=== PATIENT | male | born 1955 | race Caucasian/White ===

== ENCOUNTER 2021-02-15 16:11 | Emergency (ER) | payer OTHER ==
[~2021-02-15] VITALS: Ht 172.7 cm; Wt 77.1 kg
--- NOTE | 2021-02-15 16:15 | NUR ---
PT TAKEN TO BED 7 AND TRIAGED AT BEDSIDE.
[2021-02-15 16:22] VITALS: BP 165/78
--- NOTE | 2021-02-15 16:25 | NUR ---
65 YEAR OLD MALE COMPLAINS OF LEFT LEG PAIN X SUNDAY. PT LEFT FOOT SWOLLEN AND REDDENED, WITH ITCHINESS. PT PEDAL PULSE +3, CAP REFILL <3 SEC. PT AOX4, BREATHING EVEN AND UNLABORED, SKIN WARM AND DRY. BED IN LOWEST POSITION, LOCKED, BED RAIL UPX1. PMH - HTN, HLD, CELLULITIS ALLERGIES - NKA
--- NOTE | 2021-02-15 16:57 | NUR ---
Dr. Asencio is evaluating the patient at bedside.
--- NOTE | 2021-02-15 17:14 | NUR ---
REPORT GIVEN TO BAHMAN ROMERO, TRANSFER OF CARE AT THIS TIME
--- NOTE | 2021-02-15 17:15 | NUR ---
REPORT RECEIVED FROM MERRICK ROMERO, TRANSFER OF CARE AT THIS TIME.
--- NOTE | 2021-02-15 17:18 | NUR ---
PT SITTING IN BED WITH EVEN AND UNLABORED RESPIRATIONS. PT A/O X4 WITH NO SIGNS OF DISTRESS. WILL CONTINUE TO MONITOR.
--- NOTE | 2021-02-15 17:19 | NUR ---
US SET UP AT BEDSIDE.
--- NOTE | 2021-02-15 17:28 | NUR ---
Dr. Asencio is evaluating the patient at bedside.
[2021-02-15 17:43] LABS: BASOPHILS # (AUTO) 0.1 K/uL (0.00-0.22); BASOPHILS % (AUTO) 1.3 % (0.0-2.0); EOSINOPHILS # (AUTO) 0.2 K/uL (0-0.4); EOSINOPHILS % (AUTO) 1.9 % (0.0-4.0); HEMATOCRIT 37.4 % (36-52); HEMOGLOBIN 12.7 g/dL (12.0-18.0); LYMPHOCYTES # (AUTO) 2.8 K/uL (2.0-11.5); LYMPHOCYTES % (AUTO) 29.2 % (20.5-51.1); MEAN CORPUSCULAR HEMOGLOBIN 30 pg (27-31); MEAN CORPUSCULAR HGB CONC 34 g/dL (33-37); MEAN CORPUSCULAR VOLUME 87.3 fL (80-94); MONOCYTES % (AUTO) 10.2 % (1.7-9.3); NEUTROPHILS # (AUTO) 5.5 K/uL (1.8-7.7); NEUTROPHILS % (AUTO) 57.4 % (42.2-75.2); PLATELET COUNT (AUTO) 196 K/uL (140-450); RED BLOOD CELL COUNT(AUTO) 4.29 MIL/uL (4.20-6.10); RED CELL DISTRIBUTION WIDTH 13.6 % (11.6-13.7); WHITE BLOOD COUNT (AUTO) 9.6 K/uL (4.8-10.8)
[2021-02-15 17:50] LABS: ANION GAP 13.2 (8-16); CARBON DIOXIDE 25.9 mmol/L (21-32); CREATININE 1.4 mg/dL (0.6-1.3); POTASSIUM 4.1 mmol/L (3.5-5.1)
--- NOTE | 2021-02-15 19:04 | NUR ---
US AT BEDSIDE
--- NOTE | 2021-02-15 19:10 | NUR ---
REPORT GIVEN TO CATRACHITO ROMERO. TRANSFER OF CARE AT THIS TIME.
--- NOTE | 2021-02-15 19:10 | NUR ---
Report received from NICK Doan for continuation of care.
--- NOTE | 2021-02-15 19:24 | NUR ---
Patient sitting in bed L leg elevated, Cap refill <3sec. Sensation present to touch. Breathing even and unlabored. NAD noted.
[2021-02-15] MEDS ORDERED: CEPH-588 PO (19:43)
--- NOTE | 2021-02-15 19:46 | NUR ---
ERMD at bedside for continuation of patient care.
[2021-02-15] MEDS ORDERED: DIPH2CRE TP (20:31)
[2021-02-15 20:34] VITALS: BP 118/57
== END 2021-02-15 20:34 | disposition home or self-care (01) ==
LOC: MED 16:11
DX: L03.116 Cellulitis of left lower limb (principal); E07.9 Disorder of thyroid, unspecified; E78.5 Hyperlipidemia, unspecified; I10 Essential (primary) hypertension; Z79.899 Other long term (current) drug therapy
CPT/HCPCS: 36415; 80048; 85025; 85379; 85651; 86140; 93971; 99284

== ENCOUNTER 2022-08-31 15:03 | Emergency (ER) | payer OTHER ==
[~2022-08-31] VITALS: Ht 177.8 cm; Wt 86.2 kg
[~2022-08-31 15:03] MED LIST: CEPH-588 PO; DIPH2CRE TP
[2022-08-31 15:31] VITALS: BP 147/74
--- NOTE | 2022-08-31 15:49 | NUR ---
DR ADAMS AT BEDSIDE EVALUATING PT
--- NOTE | 2022-08-31 16:07 | NUR ---
LAB AT BEDSIDE FOR BLOOD DRAW
[2022-08-31 16:15] LABS: APPEARANCE,URINE CLEAR (CLEAR); BILIRUBIN,URINE NEGATIVE (NEGATIVE); BLOOD, URINE 2+ (NEGATIVE); COLOR,URINE YELLOW (YELLOW); LEUKOCYTE ESTERASE ,URINE NEGATIVE (NEGATIVE); NITRITE, URINE NEGATIVE (NEGATIVE); UGLUCOSE NEGATIVE (NEGATIVE)
[2022-08-31 16:27] LABS: OTHER CASTS, URINE None Seen /LPF (None Seen); RBC,URINE 20-50 /HPF (0-5); WBC,URINE 0-5 /HPF (0-5)
[2022-08-31 16:38] LABS: BASOPHILS % (AUTO) 0.5 % (0.0-2.0); EOSINOPHILS # (AUTO) 0.1 K/uL (0-0.4); EOSINOPHILS % (AUTO) 1.4 % (0.0-4.0); HEMATOCRIT 39.1 % (36-52); LYMPHOCYTES # (AUTO) 2.2 K/uL (2.0-11.5); LYMPHOCYTES % (AUTO) 25.6 % (20.5-51.1); MEAN CORPUSCULAR HEMOGLOBIN 29 pg (27-31); MEAN CORPUSCULAR HGB CONC 33 g/dL (33-37); MEAN CORPUSCULAR VOLUME 85.6 fL (80-94); MONOCYTES # (AUTO) 0.8 K/uL (0.8-1.0); MONOCYTES % (AUTO) 9.8 % (1.7-9.3); NEUTROPHILS # (AUTO) 5.4 K/uL (1.8-7.7); NEUTROPHILS % (AUTO) 62.7 % (42.2-75.2); PLATELET COUNT (AUTO) 176 K/uL (140-450); RED BLOOD CELL COUNT(AUTO) 4.56 MIL/uL (4.20-6.10); WHITE BLOOD COUNT (AUTO) 8.6 K/uL (4.8-10.8)
--- NOTE | 2022-08-31 17:00 | NUR ---
67/M PRESENTS TO ED WITH C/O DYSURIA AND URINARY RETENTION X2 DAYS. PATIENT STATES HE BELIEVES HE PASSED A STONE DURING URINATION TODAY AND STATES IT PROVIDED SOME RELIEF. PATIENT DENIES ABD PAIN, FEVERS, HEMATURIA OR CHILLS.
[2022-08-31 17:06] LABS: ALBUMIN 3.6 g/dL (3.4-5.0); ANION GAP 16.1 (8-16); CARBON DIOXIDE 23.8 mmol/L (21-32); CREATININE 1.3 mg/dL (0.6-1.3); POTASSIUM 3.9 mmol/L (3.5-5.1); TOTAL BILIRUBIN 0.6 mg/dL (0.0-1.0)
[2022-08-31 17:45] VITALS: BP 141/78
--- NOTE | 2022-08-31 17:45 | NUR ---
Patient discharged with v/s stable. Written and verbal after care instructions ABOUT KIDNEY STONES given and explained. Patient verbalized understanding. Ambulatory with steady gait. All questions addressed prior to discharge. Advised to follow up with PMD.
== END 2022-08-31 17:45 | disposition home or self-care (01) ==
LOC: MED 15:03
DX: N20.0 Calculus of kidney (principal); E11.65 Type 2 diabetes mellitus with hyperglycemia; E07.9 Disorder of thyroid, unspecified; Z79.899 Other long term (current) drug therapy
CPT/HCPCS: 36415; 80053; 81001; 85025; 99284

== ENCOUNTER 2023-09-19 07:18 | Emergency (ER) | payer OTHER ==
[~2023-09-19] VITALS: Ht 177.8 cm; Wt 90.7 kg
[2023-09-19 07:37] VITALS: BP 151/70; PULSE 61; RESP 18; TEMP 97; O2SAT 98
[2023-09-19] MEDS ORDERED: HYDROcodone/APAP 5/325 MG 1 TAB TAB PO ONE (08:15)
[2023-09-19] MEDS ORDERED: ACET-10509 PO (11:04)
[2023-09-19 11:14] VITALS: BP 151/70; PULSE 61; RESP 18; TEMP 97; O2SAT 98
== END 2023-09-19 11:14 | disposition home or self-care (01) ==
LOC: MED 07:18
DX: S83.91XA Sprain of unspecified site of right knee, initial encounter (principal); S29.011A Strain of muscle and tendon of front wall of thorax, initial encounter; S70.01XA Contusion of right hip, initial encounter; M25.551 Pain in right hip; I10 Essential (primary) hypertension; E03.9 Hypothyroidism, unspecified; Z79.899 Other long term (current) drug therapy; Z79.2 Long term (current) use of antibiotics; W01.0XXA Fall on same level from slipping, tripping and stumbling without subsequent striking against object, initial encounter; Y92.89 Other specified places as the place of occurrence of the external cause; Y93.89 Activity, other specified; Y99.8 Other external cause status
CPT/HCPCS: 71101; 72050; 72110; 73502; 73562; 99284